=== PATIENT | female | born 1980 | race African-American/Black ===

== ENCOUNTER 2017-11-28 07:40 | Emergency (ER) | payer SELFPAY ==
[~2017-11-28] VITALS: Ht 172.7 cm; Wt 81.0 kg
[2017-11-28 07:40] VITALS: BP 127/86; PULSE 83; RESP 14; TEMP 98.8; O2SAT 100
[~2017-11-28 07:40] MED LIST: PROT40TA PO; SUCR1S PO; Z.0.NO CURRENT MEDS; ZOFR4TAB3 SL
[2017-11-28] MEDS ORDERED: PENI500T PO (08:00)
[2017-11-28] MEDS ORDERED: LIDO1SOL8 SWISH-SWAL (08:00)
--- NOTE | 2017-11-28 08:01 | PD ---
HPI Chief Complaint: ENT Complaint Time Seen by Provider: 07:46 Travel History International Travel<30 days: No Contact w/Intl Traveler<30days: No Traveled to known affect area: No History of Present Illness HPI Patient comes in complaining of resolving cold, over the last week. Over the last 2 days she has started to develop a sore throat, which has not gone away and continues to persist. Now she has noted lumps on her left side of her neck as well. Patient currently is able to tolerate her secretions. Patient also denies any associated factors such as fever, neck pain or stiffness, chest pain , abdominal pain, back pain, rash, nausea, vomiting, or diarrhea... Throat soreness is worse with swallowing. However no apparent alleviating symptoms. Allergy to sulfa patient states that her symptoms are hives Past medical history and past surgical history is significant for cholecystectomy LMP is November 16, 2017 [facility] Past Medical History Immunizations Current: Yes ?: Not LMP: 11/16/17 : 3 Para: 2 Past Surgical History Cholecystectomy: Yes Social History Alcohol Use: Yes (occassionaly) Tobacco Use: No Substance Use: No Allergies-Medications (Allergen,Severity, Reaction): Coded Allergies: Sulfa (Sulfonamide Antibiotics) (Verified Allergy, Severe, Hives, 11/28/17) Reported Meds & Prescriptions Reported Meds & Active Scripts Active Zofran ODT (Ondansetron HCl) 4 Mg Tab 4 Mg SL Q6H PRN FOR NAUSEA/VOMITING Protonix (Pantoprazole Sodium) 40 Mg Tab 40 Mg PO DAILY 14 Days Carafate 1 Gm/10 Ml Udc (Sucralfate) 1 Gm/10 Ml Susp 1 Gm PO TIDACHS 5 Days Take with water on an empty stomach. To reduce the potential of adversely affecting the absorption of other drugs, take other drugs 2 hours prior to Sucralfate. Reported No Current Meds (Miscellaneous Medication) Misc Review of Systems General / Constitutional: No: Fever Eyes: No: Visual changes HENT: Positive: Sore Throat Cardiovascular: No: Chest Pain or Discomfort Respiratory: No: Shortness of Breath Gastrointestinal: No: Abdominal Pain Genitourinary: No: Dysuria Musculoskeletal: No: Pain Skin: No Rash Neurologic: No: Weakness Psychiatric: No: Depression Endocrine: No: Polydipsia Hematologic/Lymphatic: No: Easy Bruising Physical Exam Narrative GENERAL: SKIN: Warm and dry. HEAD: Atraumatic. Normocephalic. EYES: Pupils equal and round. No scleral icterus. No injection or drainage. ENT: No nasal bleeding or discharge. Mucous membranes pink and moist. erythematous left tonsillar area, no exudates, present anterior cervical lad NECK: Trachea midline. No JVD. CARDIOVASCULAR: Regular rate and rhythm. RESPIRATORY: No accessory muscle use. Clear to auscultation. Breath sounds equal bilaterally. GASTROINTESTINAL: Abdomen soft, non-tender, nondistended. MUSCULOSKELETAL: Extremities without clubbing, cyanosis, or edema. No obvious deformities. NEUROLOGICAL: Awake and alert. No obvious cranial nerve deficits. Motor grossly within normal limits. Five out of 5 muscle strength in the arms and legs. Normal speech. PSYCHIATRIC: Appropriate mood and affect; insight and judgment normal. Data Data Last Documented VS Vital Signs Date Time Temp Pulse Resp B/P (MAP) Pulse Ox O2 Delivery O2 Flow Rate FiO2 11/28/17 07:40 98.8 83 14 127/86 (100) 100 MDM Medical Decision Making Medical Screen Exam Complete: Yes Emergency Medical Condition: Yes Medical Record Reviewed: Yes Differential Diagnosis Viral pharyngitis versus strep pharyngitis Narrative Course Patient symptoms are all consistent with a resolving viral illness with now a secondary bacterial pharyngitis. Diagnosis Primary Impression: Pharyngitis Qualified Codes: J02.9 - Acute pharyngitis, unspecified Patient Instructions: General Instructions, Pharyngitis (ED) Scripts Lidocaine Viscous Liq (Lidocaine Viscous Liq) 2 % Liqd 5 ML SWISH-SWAL QID Y for PAIN, #160 ML 0 Refills Prov: Estuardo Lyon MD 11/28/17 Penicillin V Potassium (Penicillin V Potassium) 500 Mg Tab 500 MG PO Q8H for Infection, #21 TAB 0 Refills Prov: Estuardo Lyon MD 11/28/17 Disposition: 01 DISCHARGE HOME Condition: Stable Estuardo Lyon MD Nov 28, 2017 08:01
== END 2017-11-28 08:14 | disposition home or self-care (01) ==
LOC: PHED 07:40
DX: J02.9 Acute pharyngitis, unspecified (principal)
CPT/HCPCS: 99283